=== PATIENT | male | born 1955 | race Two or more races ===

== ENCOUNTER 2024-12-12 21:51 | Emergency (ER) | payer OTHER ==
[2024-12-12 21:58] VITALS: TEMP 99.1; BMI 24.9
[2024-12-12 22:48] LABS: EOS % 1.9 % (0-4.5); LYMPH % 18.4 % (8-40); MCH 29.1 pg (25.7-33.7); MCHC 33.4 g/dl (32.0-35.9); MEAN CELL VOLUME 87.1 fl (80-96); MEAN PLT VOLUME 9.5 fl (7.5-11.1); MONO % 3.4 % (3.8-10.2); NEUT % 75.3 % (42.8-82.8); PLATELET COUNT 292 10^3/uL (134-434); RBC 4.82 M/mm3 (4.00-5.60); RDW 13.9 % (11.9-15.9); WHITE BLOOD COUNT 7.6 K/mm3 (4.0-10.0)
[2024-12-12 23:10] LABS: POTASSIUM 4.1 mmol/L (3.5-5.1)
[2024-12-12 23:12] LABS: BLOOD UREA NITROGEN 20.7 mg/dL (7-18); CALCIUM 9.5 mg/dL (8.5-10.1)
[2024-12-12 23:13] LABS: ALBUMIN 4.1 g/dl (3.4-5.0)
[2024-12-12 23:16] LABS: CREATININE 1.3 mg/dL (0.55-1.3)
[2024-12-12 23:17] LABS: BILIRUBIN,TOTAL 0.5 mg/dL (0.2-1); TOT PROT 7.4 g/dl (6.4-8.2)
[2024-12-12] MEDS ORDERED: FAMOTIDINE 20 MG TABLET ONE (23:32)
[2024-12-12] MEDS ORDERED: IBUPROFEN 400 MG TABLET (FP) PO ONE (23:32)
[2024-12-12] MEDS: IBUPROFEN 600 MG TABLET (FP) PO ONE (23:36)
[2024-12-12] MEDS: FAMOTIDINE 10 MG TABLET PO ONE (23:36)
[2024-12-12 23:46] VITALS: BP 155/92; PULSE 86; RESP 20
== END 2024-12-12 23:46 | disposition home or self-care (01) ==
LOC: JER 21:51
DX: R07.89 Other chest pain (principal)
CPT/HCPCS: 36415; 71046-TC-FY; 80053; 84484; 85025; 93005; 93010; 99285-25